=== PATIENT | female | born 1950 | race Hispanic/Latino ===

== ENCOUNTER 2021-11-22 07:44 | Inpatient (IN) | payer MEDICARE, OTHER ==
[2021-11-22] MEDS ORDERED: SODIUM CHLORIDE 0.9% 1000 ML 1,000 ML IV ONE (08:57)
--- NOTE | 2021-11-22 09:01 | Emergency Department Report ---
HPI - General Chief Complaint: Neuro Symptoms/Deficit Time Seen by Provider: 11/22/21 08:49 - HPI HPI: Room 25 The patient is a 71-year-old female present with a chief complaint of hand tremors. Patient was reportedly sent to the ED by her daughter who called EMS secondary to the patient exhibiting hand tremors. Reportedly in the past the patient has experienced this when her potassium was low. Patient appears confused initially states she does not know when asked why she was brought to the emergency department. Patient later complains of hand tremors. Patient denies history of heavy/frequent alcohol consumption ED Past Medical Hx - Past Medical History Hx GERD: Yes (1998) Hx Seizures: Yes (X1 OCCURANCE R/T ECTOPIC 1979) - Surgical History Additional Surgical History: Bilateral knee surgery - Family History Family history: no significant - Social History Smoking Status: Never Smoker Substance Use Type: None (Denies illicit drug use) - Medications Home Medications: Home Medications Medication Instructions Recorded Confirmed Last Taken Type Omeprazole Magnesium [Prilosec Otc] 20 mg PO QDAY 05/17/14 05/24/14 05/23/14 History Quetiapine Fumarate (Nf) [Seroquel 150 mg PO QDAY 05/17/14 05/24/14 05/23/14 History XR] Sertraline [Zoloft] 100 mg PO QDAY 05/17/14 05/24/14 05/23/14 History Dexlansoprazole [Dexilant] 60 mg PO QDAY 05/24/14 05/24/14 05/23/14 History LORazepam [Lorazepam] 1 mg PO BID 05/24/14 05/24/14 05/23/14 History ED Review of Systems ROS: Stated complaint: TREMMORS,SHAKES Other details as noted in HPI Constitutional: no symptoms reported Eyes: denies: eye pain ENT: denies: throat pain Respiratory: no symptoms reported Cardiovascular: denies: chest pain Endocrine: no symptoms reported Gastrointestinal: denies: abdominal pain Genitourinary: denies: dysuria Musculoskeletal: denies: back pain Neurological: other (Tremors) Physical Exam - Physical Exam Vital Signs: Vital Signs 11/22/21 07:50 Temperature 98.0 F Pulse Rate 120 H Respiratory 16 Rate Blood Pressure 124/74 [Left] O2 Sat by Pulse 97 Oximetry Physical Exam: GENERAL: The patient is well-developed well-nourished female lying on stretcher sleeping not appearing to be in acute distress. Patient easily awakened to verbal stimuli HEENT: Normocephalic. Atraumatic. Extraocular motions are intact. Patient has moist mucous membranes. NECK: Supple. Trachea midline CHEST/LUNGS: Clear to auscultation. There is no respiratory distress noted. HEART/CARDIOVASCULAR: Regular. There is no tachycardia. There is no gallop rub or murmur. ABDOMEN: Abdomen is soft, nontender. Patient has normal bowel sounds. There is no abdominal distention. SKIN: There is no rash. There is no edema. There is no diaphoresis. NEURO: The patient is awake, alert, and oriented. The patient is cooperative. The patient has no focal neurologic deficits. The patient has normal speech. GCS 15. Cranial nerves II through XII grossly intact. Trace tremors noted occasionally in hands MUSCULOSKELETAL: There is no evidence of acute injury. ED Course Vital Signs 11/22/21 07:50 Temperature 98.0 F Pulse Rate 120 H Respiratory 16 Rate Blood Pressure 124/74 [Left] O2 Sat by Pulse 97 Oximetry ED Medical Decision Making - Lab Data Result diagrams: 11/22/21 09:31 11/22/21 09:31 Laboratory Tests 11/22/21 11/22/21 11/22/21 09:31 09:31 09:31 WBC 9.2 RBC 4.66 Hgb 14.6 H Hct 42.9 MCV 92 MCH 31 MCHC 34 RDW 13.7 Plt Count 249 Lymph % (Auto) 10.6 L Howard % (Auto) 8.0 H Eos % (Auto) 0.0 Baso % (Auto) 0.2 Lymph # (Auto) 1.0 L Howard # (Auto) 0.7 Eos # (Auto) 0.0 Baso # (Auto) 0.0 Seg Neutrophils % 81.2 H Seg Neutrophils # 7.5 Sodium 142 Potassium 3.5 L Chloride 98.7 Carbon Dioxide 23 Anion Gap 24 BUN 41 H Creatinine 1.9 H Estimated GFR 26 BUN/Creatinine Ratio 22 Glucose 126 H Calcium 10.1 Magnesium 2.00 Total Bilirubin 0.40 AST 18 ALT 11 Alkaline Phosphatase 97 Total Creatine Kinase 117 CK-MB (CK-2) 3.8 CK-MB (CK-2) Rel Index 3.2 Troponin T < 0.010 Total Protein 8.8 H Albumin 4.8 Albumin/Globulin Ratio 1.2 TSH 1.060 Free T4 1.33 - EKG Data -: EKG Interpreted by Me Rate: tachycardia - EKG Data When compared to previous EKG there are: previous EKG unavailable Interpretation: other (Atrial fibrillation at 100 bpm) - Differential Diagnosis Resting tremor, hyperthyroidism, electrolyte abnormality Critical care attestation.: If time is entered above; I have spent that time in minutes in the direct care of this critically ill patient, excluding procedure time. ED Disposition Clinical Impression: Atrial fibrillation, Acute kidney injury Disposition: ADMITTED INPATIENT Is pt being admited?: Yes Does the pt Need Aspirin: No Condition: Fair Time of Disposition: 13:00 (Care transferred to hospitalist (Dr Lee))
[2021-11-22 10:21] LABS: Basophils % (Auto) 0.2 % (0.0-1.8); Creatine Kinase MB 3.8 ng/mL (0.0-4.0); Hematocrit 42.9 % (30.3-42.9); Hemoglobin 14.6 gm/dl (10.1-14.3); Lymphocytes % (Auto) 10.6 % (13.4-35.0); Mean Corpuscular HGB Conc 34 % (30-34); Mean Corpuscular Volume 92 fl (79-97); Monocytes # (Auto) 0.7 K/mm3 (0.0-0.8); Platelet Count 249 K/mm3 (140-440); Red Blood Count 4.66 M/mm3 (3.65-5.03); Red Cell Distribution Width 13.7 % (13.2-15.2)
[2021-11-22 10:23] LABS: Alanine Aminotransferase 11 units/L (7-56); Albumin 4.8 g/dL (3.9-5); BUN/Creatinine Ratio 22; Blood Urea Nitrogen 41 mg/dL (7-17); Calcium 10.1 mg/dL (8.4-10.2); Hemolysis Index 8
[2021-11-22 10:25] LABS: Free T4 (Free Thyroxine) 1.33 ng/dL (0.76-1.46)
--- NOTE | 2021-11-22 13:02 | History and Physical Report ---
History of Present Illness Chief complaint: I am shaking History of present illness: 71 YO Female with Obesity Hypoventilation Syndrome, GERD, Seizure Disorder, OA, Vascular Dementia, Cerebral Atherosclerosis presents to ED for evaluation. Patient is confused with diminished cognition and provides minimal history. Wesley quinteros reports "I keep checking". Additional history provided by EMS staff, ED staff, as well as the patient's daughter was made available by telephone for interview. As per daughter the patient has experienced increased weakness and confusion over the past 1 month with persistent and worsening symptoms over the same timeframe. The patient was found to have increased confusion today and subsequent loss of consciousness.. EMS was notified by the daughter for the aforementioned symptoms. Upon arrival by EMS the patient was found to be in distress and subsequent transported to [facility] for further care and evaluation of the aforementioned symptoms. The patient was seen and evaluated in the em ergency department. All lab and imaging studies reviewed. Patient was found to have new onset atrial fibrillation, TOSHIA with ATN, volume depletion, metabolic encephalopathy. Patient admitted to telemetry due to increased risk of worsening symptoms and for medical stabilization. Patient is confused and lethargic at the time my evaluation but has a positive gag reflex and is able to protect her airway without difficulty. No prior admission for review. All medication listed at time of admission has been reconciled. Advanced care planning conducted in ED. [id number] score: 2 Past History Past Medical History: arthritis, GERD, hypertension, seizures, other (See HPI) Past Surgical History: total knee replacement Social history: . denies: smoking, alcohol abuse, prescription drug abuse Family history: hypertension Medications and Allergies Allergies Allergy/AdvReac Type Severity Reaction Status Date / Time codeine AdvReac Itching Verified 11/22/21 07:52 Home Medications Medication Instructions Recorded Confirmed Last Taken Type Omeprazole Magnesium [Prilosec Otc] 20 mg PO QDAY 05/17/14 05/24/14 05/23/14 History Quetiapine Fumarate (Nf) [Seroquel 150 mg PO QDAY 05/17/14 05/24/14 05/23/14 History XR] Sertraline [Zoloft] 100 mg PO QDAY 05/17/14 05/24/14 05/23/14 History Dexlansoprazole [Dexilant] 60 mg PO QDAY 05/24/14 05/24/14 05/23/14 History LORazepam [Lorazepam] 1 mg PO BID 05/24/14 05/24/14 05/23/14 History Review of Systems ROS unobtainable: due to mental status Exam - Constitutional Vitals: Temp Pulse Resp BP Pulse Ox 98.0 F 72 16 152/84 99 11/22/21 07:50 11/22/21 12:40 11/22/21 12:40 11/22/21 12:40 11/22/21 12:40 General appearance: Present: mild distress, obese - EENT Eyes: Present: PERRL ENT: hearing intact, clear oral mucosa, hearing decreased - Neck Neck: Present: supple, normal ROM - Respiratory Respiratory effort: normal Respiratory: bilateral: diminished - Cardiovascular Rhythm: irregularly irregular - Extremities Extremities: no ischemia Peripheral Pulses: within normal limits - Abdominal General gastrointestinal: Present: soft, non-tender, non-distended, normal bowel sounds Female genitourinary: Present: normal - Integumentary Integumentary: Present: clear, dry - Musculoskeletal Musculoskeletal: generalized weakness - Psychiatric Psychiatric: no appropriate mood/affect, no intact judgment & insight, no memory intact - Neurologic Neurologic: CNII-XII intact, no focal deficits, moves all extremities, no gait normal HEART Score - HEART Score Troponin: Troponin T < 0.010 ng/mL (0.00-0.029) 11/22/21 09:31 Results - Labs CBC & Chem 7: 11/22/21 09:31 11/22/21 09:31 Labs: Abnormal lab results 11/22/21 11/22/21 Range/Units 09:31 09:31 Hgb 14.6 H (10.1-14.3) gm/dl Lymph % (Auto) 10.6 L (13.4-35.0) % [place] % (Auto) 8.0 H (0.0-7.3) % Lymph # (Auto) 1.0 L (1.2-5.4) K/mm3 Seg Neutrophils % 81.2 H (40.0-70.0) % Potassium 3.5 L (3.6-5.0) mmol/L BUN 41 H (7-17) mg/dL Creatinine 1.9 H (0.6-1.2) mg/dL Glucose 126 H (65-100) mg/dL Total Protein 8.8 H (6.3-8.2) g/dL Assessment and Plan - Patient Problems (1) New onset atrial fibrillation Current Visit: Yes Status: Acute Plan to address problem: Cardiology team consulted in ED. Rate currently controlled, EKG finding consistent with new onset atrial fibrillation. Therapeutic anticoagulation as per cardiology team. (2) Syncope Current Visit: Yes Status: Acute Qualifiers: Encounter type: initial encounter Plan to address problem: CT head, neuro check, seizure precautions, fall precautions. (3) Acute kidney injury (TOSHIA) with acute tubular necrosis (ATN) Current Visit: Yes Status: Acute Plan to address problem: IV fluid resuscitation therapy, BMP, repeat BMP in a.m., monitor fluid balance. (4) Vascular dementia Current Visit: Yes Status: Acute Qualifiers: Dementia behavioral disturbance: without behavioral disturbance Qualified Code(s): F01.50 - Vascular dementia without behavioral disturbance Plan to address problem: Verbal prompting, verbal redirection, benzodiazepine therapy as clinically indicated. (5) Cerebral atherosclerosis Current Visit: Yes Status: Acute Plan to address problem: Risk factor reduction, antiplatelet therapy, supportive care. (6) Metabolic encephalopathy Current Visit: Yes Status: Acute Plan to address problem: Supportive care, neuro check, seizure precaution, aspiration caution, fall precautions. (7) Obesity hypoventilation syndrome Current Visit: Yes Status: Acute Plan to address problem: Balanced diet, increase physical activity discharge, outpatient pulmonary follow-up for sleep study. (8) DVT prophylaxis Current Visit: Yes Status: Acute Plan to address problem: SCD to bilateral lower extremities while in bed (9) Advance care planning Current Visit: Yes Status: Acute Plan to address problem: Disease education data, care plan discussed, diagnoses discussed, prognosis discussed, patient is full code. +30 minutes. (10) Preventative health care Current Visit: Yes Status: Acute Plan to address problem: Patient family counseled regarding home safety, outpatient follow-up with primary care physician for all age and risk factor appropriate screening test, +30 minutes.
[2021-11-22] MEDS ORDERED: ALBUTEROL 2.5 MG/3 ML NEBU IH PRN (13:04)
[2021-11-22] MEDS ORDERED: ONDANSETRON 4 MG/2 ML INJ IV PRN (13:04)
[2021-11-22] MEDS ORDERED: HYDROmorphone 0.5 MG/0.5 ML INJ IV PRN (13:04)
--- NOTE | 2021-11-22 13:37 | Electrocardiograph Report ---
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
[2021-11-22 14:50] LABS: Free T4 (Free Thyroxine) 1.24 ng/dL (0.76-1.46)
--- NOTE | 2021-11-22 16:20 | Cat Scan Report ---
CT head/brain wo con INDICATION / CLINICAL INFORMATION: 71 years Female; syncope. TECHNIQUE: Routine CT head without contrast. All CT scans at this location are performed using CT dos e reduction for ALARA by means of automated exposure control. COMPARISON: None. FINDINGS: BRAIN / INTRACRANIAL CONTENTS: No acute hemorrhage, mass effect, midline shift, hydrocephalus, or acu te, large territorial infarct. No signs of significant atrophy or chronic infarct. No significant whi te matter abnormality seen. CRANIOCERVICAL JUNCTION: No significant abnormality. ORBITS: No significant abnormality of visualized orbits. SINUSES / MASTOIDS: Visualized paranasal sinuses and mastoid air cells are essentially clear. ADDITIONAL FINDINGS: None. IMPRESSION: 1. No focal mass, hemorrhage, hydrocephalus, or acute, large territorial infarct. Signer Name: Ricardo Ramey MD, III Signed: 11/22/2021 4:15 PM Workstation Name: [id number]
[2021-11-22] MEDS: ACETAMINOPHEN 325 MG TAB PO PRN (18:53)
[2021-11-23 05:12] LABS: Calcium 9.2 mg/dL (8.4-10.2)
[2021-11-23] MEDS ORDERED: DEXLANSOPRAZOLE 60 MG PO SCH (10:00)
[2021-11-23] MEDS ORDERED: QUETIAPINE FUMARATE 150 MG PO SCH (10:00)
--- NOTE | 2021-11-23 10:55 | Consultation ---
History of Present Illness Consult date: 11/23/21 Consult reason: atrial fibrillation History of present illness: 71-year-old female is admitted with weakness and confusion. Currently, her ment al status is back to baseline and she is alert and oriented. She reports that she is followed by Dr. Batista at [facility] and has been anticoagulated with Eliquis as outpatient for history of AF. No prior history of DVT/PE or strokes per patient. She currently is without any acute cardiac complaints and denies any chest pain, shortness of breath, or palpitations. Work-up notable for EKG with rate controlled AF, troponin x1 negative, normal thyroid studies, and TOSHIA with Cr 1.9 on presentation (now resolved after IV fluids). CT of head negative. Past History Past Medical History: arthritis, GERD, hypertension, seizures, other (See HPI) Past Surgical History: total knee replacement Social history: . denies: smoking, alcohol abuse, prescription drug abuse Family history: hypertension Medications and Allergies Allergies Allergy/AdvReac Type Severity Reaction Status Date / Time codeine AdvReac Itching Verified 11/22/21 07:52 Home Medications Medication Instructions Recorded Confirmed Last Taken Type Omeprazole Magnesium [Prilosec Otc] 20 mg PO QDAY 05/17/14 11/23/21 05/23/14 History Quetiapine Fumarate (Nf) [Seroquel 150 mg PO QDAY 05/17/14 11/23/21 05/23/14 History XR] Sertraline [Zoloft] 100 mg PO QDAY 05/17/14 11/23/21 05/23/14 History Dexlansoprazole [Dexilant] 60 mg PO QDAY 05/24/14 11/23/21 05/23/14 History LORazepam [Lorazepam] 1 mg PO BID 05/24/14 11/23/21 05/23/14 History Active Meds: Active Medications Acetaminophen (Acetaminophen 325 Mg Tab) 650 mg PO Q4H PRN PRN Reason: Pain MILD(1-3)/Fever >100.5/COMBS Last Admin: 11/22/21 18:53 Dose: 650 mg Albuterol (Albuterol 2.5 Mg/3 Ml Nebu) 2.5 mg IH Q4H PRN PRN Reason: Shortness Of Breath Apixaban (Apixaban 5 Mg Tab) 5 mg PO Q12HR [facility]; Protocol Hydromorphone HCl (Hydromorphone 0.5 Mg/0.5 Ml Inj) 0.5 mg IV Q13H PRN PRN Reason: Pain , Severe (7-10) Lorazepam (Lorazepam 1 Mg Tab) 1 mg PO BID [facility] Metoprolol Tartrate (Metoprolol Tartrate 25 Mg Tab) 12.5 mg PO BID [facility] Miscellaneous Medication (Quetiapine Fumarate (Nf)) 150 mg PO QDAY [facility] Miscellaneous Medication (Dexlansoprazole [Dexilant]) 60 mg PO QDAY [facility] Ondansetron HCl (Ondansetron 4 Mg/2 Ml Inj) 4 mg IV Q8H PRN PRN Reason: Nausea And Vomiting Oxycodone/Acetaminophen (Oxycodone /Acetaminophen 5-325mg Tab) 1 tab PO Q16H PRN PRN Reason: Pain, Moderate (4-6) Sertraline HCl (Sertraline 100 Mg Tab) 100 mg PO QDAY [facility] Sodium Chloride (Sodium Chloride 0.9% 10 Ml Flush Syringe) 10 ml IV BID [facility] Last Admin: 11/22/21 21:39 Dose: 10 ml Sodium Chloride (Sodium Chloride 0.9% 10 Ml Flush Syringe) 10 ml IV PRN PRN PRN Reason: LINE FLUSH Physical Examination Vital Signs Temp Pulse Resp BP Pulse Ox 98.0 F 120 H 16 124/74 97 11/22/21 07:50 11/22/21 07:50 11/22/21 07:50 11/22/21 07:50 11/22/21 07:50 Narrative exam: Gen-NAD, comfortable HEENT-normocephalic, atraumatic CV-irregularly irregular rhythm, regular rate, no murmurs Lungs-CTAB, no increased WOB Abd-soft, nt,nd Ext-no edema, warm to touch Neuro-no focal deficits, alert and oriented Psych-normal affect, no agitation Results 11/22/21 09:31 11/23/21 04:38 Comprehensive Metabolic Panel 11/23/21 Range/Units 04:38 Sodium 143 (137-145) mmol/L Potassium 3.3 L (3.6-5.0) mmol/L Chloride 103.7 (98-107) mmol/L Carbon Dioxide 25 (22-30) mmol/L BUN 37 H (7-17) mg/dL Creatinine 1.2 (0.6-1.2) mg/dL Glucose 111 H (65-100) mg/dL Calcium 9.2 (8.4-10.2) mg/dL 11/22/2021 EKGatrial fibrillation, heart rate 100, left axis, incomplete left bundle branch block 11/2021 Echonormal LVEF, normal biatrial size Assessment and Plan #Atrial fibrillation, unclear chronicity #Confusionresolved #Acute kidney injuryresolved with IV fluids #Reported history of vascular dementiapatient denies any prior strokes Patient reports history of atrial fibrillation, but it is unclear whether this is paroxysmal or persistent at this point. Will start metoprolol 12.5 mg p.o. twice daily. [id number] is at least 2 (3 if vascular dementia). Recommend continuing Eliquis 5 mg p.o. twice daily.
--- NOTE | 2021-11-23 11:05 | Progress Note ---
Assessment and Plan (1) New onset atrial fibrillation Current Visit: Yes Status: Acute Plan to address problem: Cardiology team consulted in ED. Rate currently controlled, EKG finding consistent with new onset atrial fibrillation. Therapeutic anticoagulation as p er cardiology team. (2) Syncope Current Visit: Yes Status: Acute Qualifiers: Encounter type: initial encounter Plan to address problem: CT head, neuro check, seizure precautions, fall precautions. (3) Acute kidney injury (TOSHIA) with acute tubular necrosis (ATN) Current Visit: Yes Status: Acute Plan to address problem: IV fluid resuscitation therapy, BMP, repeat BMP in a.m., monitor fluid balance. (4) Vascular dementia Current Visit: Yes Status: Acute Qualifiers: Dementia behavioral disturbance: without behavioral disturbance Qualified Code(s): F01.50 - Vascular dementia without behavioral disturbance Plan to address problem: Verbal prompting, verbal redirection, benzodiazepine therapy as clinically indicated. (5) Cerebral atherosclerosis Current Visit: Yes Status: Acute Plan to address problem: Risk factor reduction, antiplatelet therapy, supportive care. (6) Metabolic encephalopathy Current Visit: Yes Status: Acute Plan to address problem: Supportive care, neuro check, seizure precaution, aspiration caution, fall pr ecautions. (7) Obesity hypoventilation syndrome Current Visit: Yes Status: Acute Plan to address problem: Balanced diet, increase physical activity discharge, outpatient pulmonary follow-up for sleep study. (8) DVT prophylaxis Current Visit: Yes Status: Acute Plan to address problem: SCD to bilateral lower extremities while in bed (9) Advance care planning Current Visit: Yes Status: Acute Plan to address problem: Disease education data, care plan discussed, diagnoses discussed, prognosis discussed, patient is full code. +30 minutes. (10) Preventative health care Current Visit: Yes Status: Acute Plan to address problem: Patient family counseled regarding home safety, outpatient follow-up with primary care physician for all age and risk factor appropriate screening test, +30 minutes. -- Initiated on Eliquis, mental status significantly improved, discussed with daughter at the bedside. Patient placed on rate control medicine for atrial fibrillation. We will monitor H&H and will follow 2D echo, cardiology following. Subjective Date of service: 11/23/21 Interval history: Patient seen and examined. Medical records and medication list reviewed. No acute event overnight noted by the RN. Patient denies any chest pain or difficulty breathing. Patient is tolerating diet. Discussed plan of care at bedside with patient. Objective - Exam Narrative Exam: GENERAL: well-developed and obese female lying on bed appeared to be in no discomfort. HEENT: Normocephalic. Atraumatic. No conjunctival congestion or icterus. Patient has moist mucous membranes. NECK: Supple. Trachea midline. CHEST/LUNGS: Clear to auscultated bilaterally, breathing nonlabored. No wheezes crackles or rhonchi. HEART/CARDIOVASCULAR: irRegular in rate and rhythm. S1 and S2 positive. ABDOMEN: Abdomen is soft, nontender. Patient has normal bowel sounds. SKIN: There is no rash. Warm and dry. NEURO: No focal motor deficit. Follows command. MUSCULOSKELETAL: No joint effusion or tenderness. EXTRIMITY: No edema, no cyanosis or clubbing. PSYCH: Cooperative. - Constitutional Vitals: Vital Signs - 12hr 11/22/21 11/23/21 23:37 03:19 Temperature 99.4 F 99.1 F Pulse Rate 97 H 91 H Respiratory 18 18 Rate Blood Pressure 117/66 126/70 O2 Sat by Pulse 93 97 Oximetry - Labs CBC & Chem 7: 11/23/21 11:52 11/23/21 11:52 Labs: Abnormal lab results 11/23/21 Range/Units 04:38 Potassium 3.3 L (3.6-5.0) mmol/L BUN 37 H (7-17) mg/dL Glucose 111 H (65-100) mg/dL HEART Score - HEART Score Troponin: Troponin T < 0.010 ng/mL (0.00-0.029) 11/22/21 09:31
[2021-11-23] MEDS: METOPROLOL TARTRATE 25 MG TAB PO SCH ×2 (11:24→22:29)
[2021-11-23] MEDS: LORazepam 1 MG TAB PO SCH ×2 (11:24→21:52)
[2021-11-23] MEDS: SERTRALINE 100 MG TAB PO SCH (11:24)
[2021-11-23] MEDS ORDERED: oxyCODONE /ACETAMINOPHEN 5-325MG TAB PO PRN (11:30)
[2021-11-23 12:11] LABS: Hematocrit 38.5 % (30.3-42.9); Hemoglobin 13.3 gm/dl (10.1-14.3); Mean Corpuscular HGB Conc 35 % (30-34); Mean Corpuscular Volume 92 fl (79-97); Platelet Count 197 K/mm3 (140-440); Red Blood Count 4.18 M/mm3 (3.65-5.03); Red Cell Distribution Width 13.8 % (13.2-15.2)
[2021-11-23 12:22] LABS: INR 0.95 (0.87-1.13)
[2021-11-23 12:23] LABS: Partial Thromboplastin Time 29.6 Sec. (24.2-36.6)
[2021-11-23] MEDS: PANTOPRAZOLE 40 MG TAB PO SCH (14:05)
[2021-11-23] MEDS: APIXABAN 5 MG TAB PO SCH ×2 (14:05→21:49)
[2021-11-24] MEDS: ACETAMINOPHEN 325 MG TAB PO PRN (05:12)
--- NOTE | 2021-11-24 09:47 | Progress Note ---
Assessment and Plan #Atrial fibrillation, unclear chronicity #Confusionresolved #Acute kidney injuryresolved with IV fluids #Reported history of vascular dementiapatient denies any prior strokes Telemetry shows rate controlled atrial fibrillation. Continue metoprolol 12.5 mg p.o. twice daily. [id number] is at least 2 (3 if vascular dementia). Continue Eliquis 5 mg p.o. twice daily. Subjective Date of service: 11/24/21 Interval history: No events. Denies chest pain or shortness of breath. Telemetryrate controlled atrial fibrillation Objective Vital Signs Temp Pulse Pulse Resp BP Pulse Ox 11/24/21 07:55 94 11/24/21 07:48 75 153/83 94 11/24/21 04:49 97.9 F 83 20 160/93 96 11/24/21 00:41 98.1 F 95 H 20 112/71 93 11/24/21 00:00 101 H 11/23/21 22:29 88 112/71 11/23/21 22:00 97 11/23/21 19:22 98.8 F 88 20 112/69 97 11/23/21 15:30 83 16 136/85 90 11/23/21 12:00 80 80 97 11/23/21 11:30 98.3 F 73 16 138/80 98 - Physical Examination Narrative exam: Gen-NAD, comfortable HEENT-normocephalic, atraumatic CV-irregularly irregular rhythm, regular rate, no murmurs Lungs-CTAB, no increased WOB Abd-soft, nt,nd Ext-trace edema, warm to touch Neuro-no focal deficits, alert and oriented Psych-normal affect, no agitation - Labs and Meds Coagulation 11/23/21 Range/Units 11:52 PT 13.7 (12.2-14.9) Sec. INR 0.95 (0.87-1.13) APTT 29.6 (24.2-36.6) Sec. CBC 11/23/21 Range/Units 11:52 WBC 5.9 (4.5-11.0) K/mm3 RBC 4.18 (3.65-5.03) M/mm3 Hgb 13.3 (10.1-14.3) gm/dl Hct 38.5 (30.3-42.9) % Plt Count 197 (140-440) K/mm3 Comprehensive Metabolic Panel 11/23/21 Range/Units 11:52 Creatinine 1.0 (0.6-1.2) mg/dL
[2021-11-24] MEDS: SERTRALINE 100 MG TAB PO SCH (10:07)
[2021-11-24] MEDS: METOPROLOL TARTRATE 25 MG TAB PO SCH ×3 (10:08→22:40)
[2021-11-24] MEDS: APIXABAN 5 MG TAB PO SCH ×2 (10:08→22:39)
[2021-11-24] MEDS: LORazepam 1 MG TAB PO SCH ×2 (10:08→22:39)
[2021-11-24] MEDS: PANTOPRAZOLE 40 MG TAB PO SCH (10:08)
--- NOTE | 2021-11-24 14:07 | Progress Note ---
Assessment and Plan --New onset seizure -According to the daughter patient was having jerking movements before passing out and does not have any prior h/o seizure -cont on Keppra and will follow neurology recommendation -ordered MRI brain (1) New onset atrial fibrillation Current Visit: Yes Status: Acute Plan to address problem: Cardiology team consulted in ED. Rate currently controlled, EKG finding consistent with new onset atrial fibrillation. Therapeutic anticoagulation as per cardiology team. (2) Syncope Current Visit: Yes Status: Acute Qualifiers: Encounter type: initial encounter Plan to address problem: CT head, neuro check, seizure precautions, fall precautions. (3) Acute kidney injury (TOSHIA) with acute tubular necrosis (ATN) Current Visit: Yes Status: Acute Plan to address problem: IV fluid resuscitation therapy, BMP, repeat BMP in a.m., monitor fluid balance. (4) Vascular dementia Current Visit: Yes Status: Acute Qualifiers: Dementia behavioral disturbance: without behavioral disturbance Qualified Code(s): F01.50 - Vascular dementia without behavioral disturbance Plan to address problem: Verbal prompting, verbal redirection, benzodiazepine therapy as clinically indicated. (5) Cerebral atherosclerosis Current Visit: Yes Status: Acute Plan to address problem: Risk factor reduction, antiplatelet therapy, supportive care. (6) Metabolic encephalopathy Current Visit: Yes Status: Acute Plan to address problem: Supportive care, neuro check, seizure precaution, aspiration caution, fall precautions. (7) Obesity hypoventilation syndrome Current Visit: Yes Status: Acute Plan to address problem: Balanced diet, increase physical activity discharge, outpatient pulmonary foll ow-up for sleep study. (8) DVT prophylaxis Current Visit: Yes Status: Acute Plan to address problem: SCD to bilateral lower extremities while in bed (9) Advance care planning Current Visit: Yes Status: Acute Plan to address problem: Disease education data, care plan discussed, diagnoses discussed, prognosis discussed, patient is full code. +30 minutes. (10) Preventative health care Current Visit: Yes Status: Acute Plan to address problem: Patient family counseled regarding home safety, outpatient follow-up with primary care physician for all age and risk factor appropriate screening test, +30 minutes. -- Initiated on Eliquis, mental status significantly improved, discussed with daughter at the bedside. Renal function normal, Continue Keppra 500 mg twice daily. wait for MRI brain to be done and neuro eval, PT consulted and pending recommendations Subjective Date of service: 11/24/21 Interval history: Patient seen and examined. Medical records and medication list reviewed. No acute event overnight noted by the RN. Patient denies any chest pain or difficulty breathing. Patient is tolerating diet. Discussed plan of care at bedside with patient. Objective - Exam Narrative Exam: GENERAL: well-developed and obese female lying on bed appeared to be in no discomfort. HEENT: Normocephalic. Atraumatic. No conjunctival congestion or icterus. Patient has moist mucous membranes. NECK: Supple. Trachea midline. CHEST/LUNGS: Clear to auscultated bilaterally, breathing nonlabored. No wheezes crackles or rhonchi. HEART/CARDIOVASCULAR: irRegular in rate and rhythm. S1 and S2 positive. ABDOMEN: Abdomen is soft, nontender. Patient has normal bowel sounds. SKIN: There is no rash. Warm and dry. NEURO: No focal motor deficit. Follows command. MUSCULOSKELETAL: No joint effusion or tenderness. EXTRIMITY: No edema, no cyanosis or clubbing. PSYCH: Cooperative. - Constitutional Vitals: Vital Signs - 12hr 11/24/21 11/24/21 11/24/21 04:49 07:48 07:55 Temperature 97.9 F Pulse Rate 83 75 Respiratory 20 Rate Blood Pressure 160/93 153/83 O2 Sat by Pulse 96 94 94 Oximetry 11/24/21 10:00 Temperature Pulse Rate Respiratory Rate Blood Pressure O2 Sat by Pulse 98 Oximetry - Labs CBC & Chem 7: 11/25/21 05:48 11/23/21 11:52 HEART Score - HEART Score Troponin: Troponin T < 0.010 ng/mL (0.00-0.029) 11/22/21 09:31
[2021-11-24] MEDS: levETIRAcetam 500 MG TAB PO SCH ×2 (18:33→22:40)
[2021-11-25 06:11] LABS: Hematocrit 38.7 % (30.3-42.9); Hemoglobin 13.1 gm/dl (10.1-14.3); Mean Corpuscular HGB Conc 34 % (30-34); Mean Corpuscular Volume 93 fl (79-97); Platelet Count 185 K/mm3 (140-440); Red Blood Count 4.16 M/mm3 (3.65-5.03); Red Cell Distribution Width 13.5 % (13.2-15.2)
[2021-11-25] MEDS ORDERED: QUEtiapine 25 MG TAB PO SCH (10:00)
--- NOTE | 2021-11-25 10:40 | Progress Note ---
Assessment and Plan - Patient Problems (1) Atrial fibrillation Current Visit: Yes Status: Acute Plan to address problem: Patient's atrial fibrillation appears chronic, with stable rate control and on stable oral anticoagulant therapy. Continue current management. Subjective Date of service: 11/25/21 Principal diagnosis: Altered mental status Interval history: Patient is comfortable, no acute distress, no cardiac complaints. On sales enablement specialist she remains in atrial fibrillation with a well-controlled ventricular rate. Objective Vital Signs Temp Pulse Resp BP Pulse Ox 11/25/21 10:00 98 11/25/21 08:31 97.5 F L 81 140/76 95 11/25/21 06:33 98.0 F 76 16 136/74 94 11/25/21 00:43 98.4 F 81 16 150/76 95 11/24/21 23:05 98 11/24/21 20:59 98.1 F 87 24 149/77 92 11/24/21 20:00 98 11/24/21 15:12 98.0 F 82 20 155/94 96 11/24/21 12:00 75 - Physical Examination General: No Apparent Distress HEENT: Positive: PERRL Neck: Positive: neck supple Cardiac: Positive: irregularly irregular Lungs: Positive: clear to auscultation Neuro: Positive: Grossly Intact Abdomen: Positive: Soft Skin: Positive: Clear Extremities: Absent: edema - Labs and Meds CBC 11/25/21 Range/Units 05:48 WBC 5.7 (4.5-11.0) K/mm3 RBC 4.16 (3.65-5.03) M/mm3 Hgb 13.1 (10.1-14.3) gm/dl Hct 38.7 (30.3-42.9) % Plt Count 185 (140-440) K/mm3
[2021-11-25] MEDS: LORazepam 1 MG TAB PO SCH (11:39)
[2021-11-25] MEDS: levETIRAcetam 500 MG TAB PO SCH (11:40)
[2021-11-25] MEDS: APIXABAN 5 MG TAB PO SCH (11:40)
[2021-11-25] MEDS: SERTRALINE 100 MG TAB PO SCH (11:40)
[2021-11-25] MEDS: METOPROLOL TARTRATE 25 MG TAB PO SCH (11:40)
[2021-11-25] MEDS: PANTOPRAZOLE 40 MG TAB PO SCH (11:42)
--- NOTE | 2021-11-25 11:45 | Magnetic Resonance Report ---
MR brain wo con INDICATION / CLINICAL INFORMATION: Possible seizure. TECHNIQUE: Multiplanar, multisequence MR images of the brain were obtained. COMPARISON: November 22, 2021 FINDINGS: INTRACRANIAL: No restricted diffusion. No hemorrhage. Ventricular caliber is normal. No extra-axial c ollection. No mass. No herniation. Major intracranial vascular flow voids are preserved. Small quant ity of scattered T2 signal white matter hyperintensities, most consistent with mild sequela of chroni c microvascular disease which is a common finding in this age. ORBITS: No significant abnormality of visualized orbits. SINUSES / MASTOIDS: No significant abnormality of visualized sinuses and mastoid air cells. ADDITIONAL FINDINGS: None. IMPRESSION: 1. No significant intracranial abnormality. Signer Name: Phi Matos MD Signed: 11/25/2021 11:41 AM Workstation Name: [id number]
[2021-11-25 16:08] VITALS: BP 141/76
--- NOTE | 2021-11-25 16:09 | Discharge Summary ---
Providers - Providers Date of Admission: 11/22/21 13:04 Date of discharge: 11/25/21 Attending physician: JENNIFER CAZARES 11/22/21 13:34 Consult to Physician [CONS] Routine Comment: Consulting Provider: SALLY BURNS Physician Instructions: Reason For Exam: new onset a fib 11/24/21 14:00 Physical Therapy Evaluation and Treat [CONS] Routine Comment: Reason For Exam: Debility 11/24/21 14:05 Consult to Physician [CONS] Routine Comment: Consulting Provider: MIGUEL ANGEL TRAMMELL Physician Instructions: Reason For Exam: Breakthrough seizure Primary care physician: MATTRESS PACKER Hospitalization Condition: Fair Hospital course: 71-year-old female with history of hypertension, atrial fibrillation anticoagulated with Eliquis is admitted to the hospital with weakness and confusion. Patient noted to be in atrial fibrillation on telemetry. CT head was unremarkable. Patient and daughter at bedside described that patient was having some jerking movement but she does not have any history of seizure. Patient noted to have TOSHIA and placed on IV fluid, her renal function then become normal. Currently, her mental status is back to baseline and she is alert and oriented. She reports that she is followed by Dr. Batista at [facility]. Work-up notable for EKG with rate controlled AF, troponin x1 negative, normal thyroid studies, and TOSHIA with Cr 1.9 on presentation (now resolved after IV fluids). CT of head negative. Initially patient was suspected for possible seizure and started on Keppra. Neurology was consulted and evaluated the patient. Based on history and clinical finding it was concluded that patient might have convulsive syncope. Keppra was discontinued. Patient was then discharged home in stable condition with outpatient follow-up with neurology and outpatient EEG. Final Discharge Diagnosis (Prints w/discharge instructions): -- Acute convulsive syncope. -- Atrial fibrillation anticoagulated with Eliquis. -- TOSHIA likely ATN versus vasomotor nephropathy. -- Metabolic encephalopathy likely due to TOSHIA and dehydration. -- Morbid obesity. -- Suspected vascular dementia, need further outpatient work-up Time spent for discharge: 34 minutes Core Measure Documentation - Palliative Care Palliative Care/ Comfort Measures: Not Applicable - Core Measures Any of the following diagnoses?: none Exam - Physical Exam Narrative exam: GENERAL: well-developed and obese female lying on bed appeared to be in no discomfort. HEENT: Normocephalic. Atraumatic. No conjunctival congestion or icterus. Patient has moist mucous membranes. NECK: Supple. Trachea midline. CHEST/LUNGS: Clear to auscultated bilaterally, breathing nonlabored. No wheezes crackles or rhonchi. HEART/CARDIOVASCULAR: irRegular in rate and rhythm. S1 and S2 positive. ABDOMEN: Abdomen is soft, nontender. Patient has normal bowel sounds. SKIN: There is no rash. Warm and dry. NEURO: No focal motor deficit. Follows command. MUSCULOSKELETAL: No joint effusion or tenderness. EXTRIMITY: No edema, no cyanosis or clubbing. PSYCH: Cooperative. - Constitutional Vitals: Temp Pulse Resp BP Pulse Ox 97.6 F 80 16 141/76 92 11/25/21 16:07 11/25/21 16:07 11/25/21 06:33 11/25/21 16:07 11/25/21 16:07 Plan Activity: advance as tolerated Weight Bearing Status: Weight Bear as Tolerated Diet: low fat, low salt Additional Instructions: Follow-up with neurology as outpatient for possible EEG Follow up with: PRIMARY MD RUDOLPH [Primary Care Provider] - 3-5 Days KVNG HERCULES MD [Staff Physician] - 7 Days Prescriptions: Apixaban [Eliquis] 5 mg PO Q12HR #60 tablet Metoprolol [Lopressor TAB] 25 mg PO BID #60 tablet
--- NOTE | 2021-11-26 00:08 | Consultation ---
History of Present Illness Consult date: 11/25/21 Reason for Consult: Seizure Chief complaint: I was confused. History of present illness: 71 yo female with htn, "seizure", gerd, arthritis, bilateral knee replacement, who presents with an episode where she was able to converse with her granddaughter (currently at bedside) while she was shaking at her bilateral extremities and during this time she was able to recognize Berna and converse with her despite the bilateral shaking. Similar episode in the past is referred to as "seizure" in the setting of hypokalemia, per Berna. Currently, the patient feels much better and at her baseline. Upon ED arrival, noted with acute kidney injury (pre-renal) w/ borderline hypokalemia. Past History Past Medical History: arthritis, GERD, hypertension, seizures, other (See HPI) Past Surgical History: total knee replacement Social history: . denies: smoking, alcohol abuse, prescription drug abuse Family history: hypertension Medications and Allergies Allergies Allergy/AdvReac Type Severity Reaction Status Date / Time codeine AdvReac Itching Verified 11/22/21 07:52 Home Medications Medication Instructions Recorded Confirmed Last Taken Type Omeprazole Magnesium [PriLOSEC Otc] 20 mg PO QDAY 05/17/14 11/23/21 05/23/14 History Quetiapine Fumarate (Nf) [SEROquel 150 mg PO QDAY 05/17/14 11/23/21 05/23/14 History XR] Sertraline [Zoloft] 100 mg PO QDAY 05/17/14 11/23/21 05/23/14 History Dexlansoprazole [Dexilant] 60 mg PO QDAY 05/24/14 11/23/21 05/23/14 History LORazepam 1 mg PO BID 05/24/14 11/23/21 05/23/14 History Apixaban [Eliquis] 5 mg PO Q12HR #60 tablet 11/25/21 Unknown Rx Metoprolol [Lopressor TAB] 25 mg PO BID #60 tablet 11/25/21 Unknown Rx Review of Systems All systems: negative (as per hpi;) Physical Examination - Vital Signs Vital Signs: Vital Signs Temp Pulse Resp BP Pulse Ox 98.0 F 120 H 16 124/74 97 11/22/21 07:50 11/22/21 07:50 11/22/21 07:50 11/22/21 07:50 11/22/21 07:50 - Physical Exam Narrative exam: Gen: nad, well-nourished; Head: normocephalic; Eyes: no gaze deviation; no ptosis; ENT: normal vocalization; CVS: warm and well-perfused; Pulm: no respiratory distress; GI: appears non-distended; Ext: no cyanosis appreciated at distal extremities; Skin: no acute rash at distal extremities; Heme: no pathologic ecchymosis appreciated at distal extremities; Neuro: alert, oriented to name, age, month, year, surroundings, no dysarthria, no aphasia, CN 2 - PERRL, visual [place] grossly intact, CN 3, 4, 6 - EOMI, CN 5 - facial sensation symmetric to light touch, CN 7 - facial movement symmetric, CN 8 - hearing grossly intact, CN 9, 10 - uvula midline, CN 11 symmetric shoulder movement, CN 12 - tongue midline; Motor - at least 4/5 at all exts; Sensory - light touch symmetric, Cerebellar - fnf /hts intact, Gait - deferred secondary to fall risk; Results - Laboratory Findings CBC and BMP: 11/25/21 05:48 11/23/21 11:52 Abnormal Lab Findings: Abnormal Labs 11/22/21 11/22/21 11/23/21 09:31 09:31 04:38 Hgb 14.6 H MCHC Lymph % (Auto) 10.6 L Millard % (Auto) 8.0 H Lymph # (Auto) 1.0 L Seg Neutrophils % 81.2 H Potassium 3.5 L 3.3 L BUN 41 H 37 H Creatinine 1.9 H Glucose 126 H 111 H Total Protein 8.8 H 11/23/21 11:52 Hgb MCHC 35 H Lymph % (Auto) Millard % (Auto) Lymph # (Auto) Seg Neutrophils % Potassium BUN Creatinine Glucose Total Protein Assessment and Plan 71 yo female with htn, "seizure", gerd, arthritis, bilateral knee replacement, who presents with an episode where she was able to converse with her granddaughter (currently at bedside) while she was shaking at her bilateral extremities and during this time she was able to recognize Berna and converse with her despite the bilateral shaking. Similar episode in the past is referred to as "seizure" in the setting of hypokalemia, per Berna. 1. Convulsive Syncope - concern is raised based on clinical history and pt's ability to carry on a conversation while bilateral "shaking" is noted. 2. Acute Kidney Injury - in the setting of possible dehydration; per primary team. 3. Hypokalemia - common theme between last event and this event; ?cardiac dysrhythmia; management per primary team. 4. Hypertension - aim for normotension; outpatient carotid us. 5. No further acute neurologic workup indicated at present. Neurology will signoff. Gavin Ramirez MD Neurology [id number]
== END 2021-11-25 18:15 | disposition home or self-care (01) | DRG 682 ==
LOC: ED 07:44 → 4A 13:04
PROVIDERS: ADMIT Internal Medicine; ATTEND Internal Medicine
DX: N17.0 Acute kidney failure with tubular necrosis (principal); G93.41 Metabolic encephalopathy; Z68.41 Body mass index [BMI] 40.0-44.9, adult; E66.2 Morbid (severe) obesity with alveolar hypoventilation; I48.91 Unspecified atrial fibrillation; E86.0 Dehydration; F01.50 Vascular dementia, unspecified severity, without behavioral disturbance, psychotic disturbance, mood disturbance, and anxiety; E86.9 Volume depletion, unspecified; K21.9 Gastro-esophageal reflux disease without esophagitis; M19.90 Unspecified osteoarthritis, unspecified site; G40.909 Epilepsy, unspecified, not intractable, without status epilepticus; Z79.899 Other long term (current) drug therapy; Z82.49 Family history of ischemic heart disease and other diseases of the circulatory system
CPT/HCPCS: 36415; 70450; 70551; 80048; 80053; 82550; 82553; 82565; 83735; 84439; 84443; 84484; 85025; 85027; 85610; 85730; 93005; 93306; 94640; G0378; C8929

== ENCOUNTER 2022-01-26 23:51 | Emergency (ER) | payer MEDICARE ==
[2022-01-27] MEDS ORDERED: SODIUM CHLORIDE 0.9% 1000 ML 1,000 ML IV ONE (02:00)
--- NOTE | 2022-01-27 02:06 | Emergency Department Report ---
ED Altered Mental Status HPI - General Chief Complaint: Pain General Stated Complaint: WEAKNESS Time Seen by Provider: 01/27/22 01:36 Source: patient Mode of arrival: Stretcher Limitations: No Limitations - History of Present Illness Initial Comments: 71-year-old female with a history of GERD, hypertension, bipolar disorder, and renal disease, and possibly 1 seizure many years ago presents to the emergency department with confusion noticed by her family, guillermina. Patient is alert and oriented by 3, and states that she feels slightly confused. Patient's says that she is having diffuse myalgias and tongue pain, and did have urinary incontinence. Her daughter reports that when she was found, gulilermina she was more confused than she is, currently. Patient has been seen for the same symptoms twice in the past, last time was approximately 1 month ago, and there was some concerned about the patient possibly having a seizure disorder. Patient continues to have a tremulous effort of the left arm, which she cannot control. Patient has not been diagnosed with seizure disorder, but does report that these episodes of confusion do occur after she has not slept and has gone to work. Patient denies any known aggravating or alleviating factors. Patient is not on a seizure medication. Patient reports compliance with her medications. - Related Data Home Medications Medication Instructions Recorded Confirmed Last Taken Omeprazole Magnesium [PriLOSEC Otc] 20 mg PO QDAY 05/17/14 11/23/21 05/23/14 Quetiapine Fumarate (Nf) [SEROquel 150 mg PO QDAY 05/17/14 11/23/21 05/23/14 XR] Sertraline [Zoloft] 100 mg PO QDAY 05/17/14 11/23/21 05/23/14 Dexlansoprazole [Dexilant] 60 mg PO QDAY 05/24/14 11/23/21 05/23/14 LORazepam 1 mg PO BID 05/24/14 11/23/21 05/23/14 Previous Rx's Medication Instructions Recorded Last Taken Type Apixaban [Eliquis] 5 mg PO Q12HR #60 tablet 11/25/21 Unknown Rx Metoprolol [Lopressor TAB] 25 mg PO BID #60 tablet 11/25/21 Unknown Rx Allergies Allergy/AdvReac Type Severity Reaction Status Date / Time codeine AdvReac Itching Verified 06/10/22 07:52 ED Review of Systems ROS: Stated complaint: WEAKNESS Other details as noted in HPI Comment: All other systems reviewed and negative (History is limited due to patient's confusion, which is improving. Collateral information is gathered by her daughter.) Constitutional: weakness. denies: chills, fever Eyes: denies: eye pain, eye discharge, vision change ENT: other (Tongue pain). denies: ear pain, throat pain Respiratory: no symptoms reported. denies: cough, shortness of breath, wheezing Cardiovascular: denies: chest pain, palpitations Endocrine: no symptoms reported Gastrointestinal: denies: abdominal pain, nausea, diarrhea Genitourinary: denies: urgency, dysuria, discharge Musculoskeletal: denies: back pain, joint swelling, arthralgia Skin: denies: rash, lesions Neurological: other (Questionable seizure, left arm tremors). denies: headache, weakness, paresthesias Psychiatric: other (Sleep disturbances). denies: anxiety, depression, auditory hallucinations, visual hallucinations, homicidal thoughts, suicidal thoughts Hematological/Lymphatic: denies: easy bleeding, easy bruising ED Past Medical Hx - Past Medical History Previous Medical History?: Yes Hx Hypertension: Yes Hx GERD: Yes (1998) Hx Renal Disease: Yes Hx Seizures: Yes (X1 OCCURANCE R/T ECTOPIC 1979) Hx Psychiatric Treatment: Yes (Bipolar disorder) Hx HIV: No - Surgical History Past Surgical History?: Yes Additional Surgical History: Bilateral knee surgery - Social History Smoking Status: Never Smoker Substance Use Type: None - Medications Home Medications: Home Medications Medication Instructions Recorded Confirmed Last Taken Type Omeprazole Magnesium [PriLOSEC Otc] 20 mg PO QDAY 05/17/14 11/23/21 05/23/14 History Quetiapine Fumarate (Nf) [SEROquel 150 mg PO QDAY 05/17/14 11/23/21 05/23/14 History XR] Sertraline [Zoloft] 100 mg PO QDAY 05/17/14 11/23/21 05/23/14 History Dexlansoprazole [Dexilant] 60 mg PO QDAY 05/24/14 11/23/21 05/23/14 History LORazepam 1 mg PO BID 05/24/14 11/23/21 05/23/14 History Apixaban [Eliquis] 5 mg PO Q12HR #60 tablet 11/25/21 Unknown Rx Metoprolol [Lopressor TAB] 25 mg PO BID #60 tablet 11/25/21 Unknown Rx ED Physical Exam - General Limitations: No Limitations General appearance: alert, in no apparent distress - Head Head exam: Present: atraumatic, normocephalic - Eye Eye exam: Present: normal appearance, PERRL, EOMI - ENT ENT exam: Present: mucous membranes moist - Neck Neck exam: Present: normal inspection - Respiratory Respiratory exam: Present: normal lung sounds bilaterally. Absent: respiratory distress - Cardiovascular Cardiovascular Exam: Present: normal rhythm, tachycardia. Absent: systolic murmur, diastolic murmur, rubs, gallop - GI/Abdominal GI/Abdominal exam: Present: soft, normal bowel sounds - Extremities Exam Extremities exam: Present: normal inspection - Back Exam Back exam: Present: normal inspection - Neurological Exam Neurological exam: Present: alert, oriented X3, other (Left arm is tremulous) - Psychiatric Psychiatric exam: Present: normal affect, normal mood - Skin Skin exam: Present: warm, dry, intact, normal color. Absent: rash ED Course Vital Signs 01/26/22 01/27/22 01/27/22 23:53 01:01 01:16 Temperature 98 F Pulse Rate 98 H 91 H Respiratory 18 14 13 Rate Blood Pressure 156/79 142/64 O2 Sat by Pulse 96 93 Oximetry 01/27/22 01/27/22 01/27/22 01:30 02:29 02:30 Temperature Pulse Rate 97 H 120 H Respiratory 16 18 Rate Blood Pressure 122/85 142/64 142/64 O2 Sat by Pulse 90 94 94 Oximetry 01/27/22 01/27/22 01/27/22 02:46 03:00 03:16 Temperature Pulse Rate 101 H 101 H 100 H Respiratory 12 12 12 Rate Blood Pressure 115/70 142/64 O2 Sat by Pulse 93 95 95 Oximetry 01/27/22 01/27/22 01/27/22 03:46 04:00 04:16 Temperature Pulse Rate 95 H 99 H Respiratory 23 15 14 Rate Blood Pressure 115/70 115/70 115/70 O2 Sat by Pulse 93 96 Oximetry - Lab Data Result diagrams: 01/27/22 02:23 01/27/22 02:23 Lab Results 01/27/22 01/27/22 01/27/22 Range/Units 02:22 02:22 02:22 WBC (4.5-11.0) K/mm3 RBC (3.65-5.03) M/mm3 Hgb (10.1-14.3) gm/dl Hct (30.3-42.9) % MCV (79-97) fl MCH (28-32) pg MCHC (30-34) % RDW (13.2-15.2) % Plt Count (140-440) K/mm3 Lymph % (Auto) [place] % (Auto) Eos % (Auto) Baso % (Auto) Lymph # (Auto) [place] # (Auto) Eos # (Auto) Baso # (Auto) Seg Neutrophils % Seg Neutrophils # PT (12.2-14.9) Sec. INR (0.87-1.13) APTT (24.2-36.6) Sec. Sodium (137-145) mmol/L Potassium (3.6-5.0) mmol/L Chloride (98-107) mmol/L Carbon Dioxide (22-30) mmol/L Anion Gap mmol/L BUN (7-17) mg/dL Creatinine (0.6-1.2) mg/dL Estimated GFR ml/min BUN/Creatinine Ratio % Glucose (65-100) mg/dL Calcium (8.4-10.2) mg/dL Total Bilirubin (0.1-1.2) mg/dL AST (5-40) units/L ALT (7-56) units/L Alkaline Phosphatase (35-129) units/L Total Creatine Kinase (30-135) units/L Troponin T (0.00-0.029) ng/mL Total Protein (6.3-8.2) g/dL Albumin (3.9-5) g/dL Albumin/Globulin Ratio % Urine Color (Yellow) Urine Turbidity (Clear) Urine pH (5.0-7.0) Ur Specific Jerome (1.003-1.030) Urine Protein (Negative) mg/dL Urine Glucose (UA) (Negative) mg/dL Urine Ketones (Negative) mg/dL Urine Blood (Negative) Urine Nitrite (Negative) Ur Reducing Substances Urine Bilirubin (Negative) Urine Ictotest Urine Urobilinogen (<2.0) mg/dL Ur Leukocyte Esterase (Negative) Urine WBC (Auto) (0.0-6.0) /HPF Urine RBC (Auto) (0.0-6.0) /HPF U Epithel Cells (Auto) (0-13.0) /HPF Urine Bacteria (Auto) (Negative) /HPF Salicylates < 0.3 L (2.8-20.0) mg/dL Urine Opiates Screen Urine Methadone Screen Acetaminophen 5.0 L (10.0-30.0) ug/mL Ur Barbiturates Screen Ur Phencyclidine Scrn Ur Amphetamines Screen U Benzodiazepines Scrn Urine Cocaine Screen U Marijuana (THC) Screen Drugs of Abuse Note Plasma/Serum Alcohol < 0.01 (0-0.07) % 01/27/22 01/27/22 01/27/22 Range/Units 02:23 02:23 02:23 WBC 10.3 (4.5-11.0) K/mm3 RBC 4.62 (3.65-5.03) M/mm3 Hgb 14.3 (10.1-14.3) gm/dl Hct 42.9 (30.3-42.9) % MCV 93 (79-97) fl MCH 31 (28-32) pg MCHC 33 (30-34) % RDW 14.1 (13.2-15.2) % Plt Count 202 (140-440) K/mm3 Lymph % (Auto) Pilot Manager [place] % (Auto) Pilot Manager Eos % (Auto) Pilot Manager Baso % (Auto) Pilot Manager Lymph # (Auto) Pilot Manager [place] # (Auto) Pilot Manager Eos # (Auto) Pilot Manager Baso # (Auto) Pilot Manager Seg Neutrophils % Pilot Manager Seg Neutrophils # Pilot Manager PT 16.0 H (12.2-14.9) Sec. INR 1.15 H (0.87-1.13) APTT 35.1 (24.2-36.6) Sec. Sodium 136 L (137-145) mmol/L Potassium 4.2 (3.6-5.0) mmol/L Chloride 96.4 L (98-107) mmol/L Carbon Dioxide 23 (22-30) mmol/L Anion Gap 21 mmol/L BUN 31 H (7-17) mg/dL Creatinine 1.5 H (0.6-1.2) mg/dL Estimated GFR 34 ml/min BUN/Creatinine Ratio 21 % Glucose 144 H (65-100) mg/dL Calcium 10.5 H (8.4-10.2) mg/dL Total Bilirubin 0.70 (0.1-1.2) mg/dL AST 18 (5-40) units/L ALT 13 (7-56) units/L Alkaline Phosphatase 97 (35-129) units/L Total Creatine Kinase 108 (30-135) units/L Troponin T < 0.010 (0.00-0.029) ng/mL Total Protein 7.3 (6.3-8.2) g/dL Albumin 4.4 (3.9-5) g/dL Albumin/Globulin Ratio 1.5 % Urine Color (Yellow) Urine Turbidity (Clear) Urine pH (5.0-7.0) Ur Specific Jerome (1.003-1.030) Urine Protein (Negative) mg/dL Urine Glucose (UA) (Negative) mg/dL Urine Ketones (Negative) mg/dL Urine Blood (Negative) Urine Nitrite (Negative) Ur Reducing Substances Urine Bilirubin (Negative) Urine Ictotest Urine Urobilinogen (<2.0) mg/dL Ur Leukocyte Esterase (Negative) Urine WBC (Auto) (0.0-6.0) /HPF Urine RBC (Auto) (0.0-6.0) /HPF U Epithel Cells (Auto) (0-13.0) /HPF Urine Bacteria (Auto) (Negative) /HPF Salicylates (2.8-20.0) mg/dL Urine Opiates Screen Urine Methadone Screen Acetaminophen (10.0-30.0) ug/mL Ur Barbiturates Screen Ur Phencyclidine Scrn Ur Amphetamines Screen U Benzodiazepines Scrn Urine Cocaine Screen U Marijuana (THC) Screen Drugs of Abuse Note Plasma/Serum Alcohol (0-0.07) % 01/27/22 01/27/22 Range/Units 02:43 02:43 WBC (4.5-11.0) K/mm3 RBC (3.65-5.03) M/mm3 Hgb (10.1-14.3) gm/dl Hct (30.3-42.9) % MCV (79-97) fl MCH (28-32) pg MCHC (30-34) % RDW (13.2-15.2) % Plt Count (140-440) K/mm3 Lymph % (Auto) [place] % (Auto) Eos % (Auto) Baso % (Auto) Lymph # (Auto) [place] # (Auto) Eos # (Auto) Baso # (Auto) Seg Neutrophils % Seg Neutrophils # PT (12.2-14.9) Sec. INR (0.87-1.13) APTT (24.2-36.6) Sec. Sodium (137-145) mmol/L Potassium (3.6-5.0) mmol/L Chloride (98-107) mmol/L Carbon Dioxide (22-30) mmol/L Anion Gap mmol/L BUN (7-17) mg/dL Creatinine (0.6-1.2) mg/dL Estimated GFR ml/min BUN/Creatinine Ratio % Glucose (65-100) mg/dL Calcium (8.4-10.2) mg/dL Total Bilirubin (0.1-1.2) mg/dL AST (5-40) units/L ALT (7-56) units/L Alkaline Phosphatase (35-129) units/L Total Creatine Kinase (30-135) units/L Troponin T (0.00-0.029) ng/mL Total Protein (6.3-8.2) g/dL Albumin (3.9-5) g/dL Albumin/Globulin Ratio % Urine Color Yellow (Yellow) Urine Turbidity Slightly cloudy (Clear) Urine pH 5.0 (5.0-7.0) Ur Specific Jerome 1.025 (1.003-1.030) Urine Protein <15 mg/dl (Negative) mg/dL Urine Glucose (UA) Negative (Negative) mg/dL Urine Ketones Negative (Negative) mg/dL Urine Blood Negative (Negative) Urine Nitrite Negative (Negative) Ur Reducing Substances Not Reportable Urine Bilirubin Negative (Negative) Urine Ictotest Not Reportable Urine Urobilinogen < 2.0 (<2.0) mg/dL Ur Leukocyte Esterase Negative (Negative) Urine WBC (Auto) 1.0 (0.0-6.0) /HPF Urine RBC (Auto) 1.0 (0.0-6.0) /HPF U Epithel Cells (Auto) < 1.0 (0-13.0) /HPF Urine Bacteria (Auto) 1+ (Negative) /HPF Salicylates (2.8-20.0) mg/dL Urine Opiates Screen Presumptive negative Urine Methadone Screen Presumptive negative Acetaminophen (10.0-30.0) ug/mL Ur Barbiturates Screen Presumptive negative Ur Phencyclidine Scrn Presumptive negative Ur Amphetamines Screen Presumptive positive U Benzodiazepines Scrn Presumptive negative Urine Cocaine Screen Presumptive negative U Marijuana (THC) Screen Presumptive negative Drugs of Abuse Note Disclamer Plasma/Serum Alcohol (0-0.07) % - Differential Diagnosis Seizure, intoxication, acute psychiatric episode, dementia Critical care attestation.: If time is entered above; I have spent that time in minutes in the direct care of this critically ill patient, excluding procedure time. ED Disposition Clinical Impression: Confusion and disorientation Disposition: 01 HOME / SELF CARE / HOMELESS Is pt being admited?: No Condition: Stable Instructions: Confusion Additional Instructions: Please follow-up with a Neurologist, soon. Referrals: PRIMARY CAREMD [Referring] - 3-5 Days RAFI RICO MD [Referring] - 3-5 Days Time of Disposition: 05:18
[2022-01-27 02:48] LABS: Hematocrit 42.9 % (30.3-42.9); Hemoglobin 14.3 gm/dl (10.1-14.3); Mean Corpuscular HGB Conc 33 % (30-34); Mean Corpuscular Volume 93 fl (79-97); Platelet Count 202 K/mm3 (140-440); Red Blood Count 4.62 M/mm3 (3.65-5.03); Red Cell Distribution Width 14.1 % (13.2-15.2)
[2022-01-27 02:55] LABS: Bacteria,Urine 1+ /HPF (Negative)
[2022-01-27 02:56] LABS: Alanine Aminotransferase 13 units/L (7-56); Albumin 4.4 g/dL (3.9-5); BUN/Creatinine Ratio 21; Blood Urea Nitrogen 31 mg/dL (7-17)
[2022-01-27 02:58] LABS: Color,Urine Yellow (Yellow)
[2022-01-27 02:59] LABS: INR 1.15 (0.87-1.13)
[2022-01-27 02:59] LABS: Bilirubin,Urine Negative (Negative); Blood,Urine Negative (Negative); Protein,Urine <15 mg/dL mg/dL (Negative); Urobilinogen,Urine < 2.0 mg/dL (<2.0)
[2022-01-27 03:00] LABS: Amphetamine Screen,Urine PRESUMPTIVE POSITIVE; Benzodiazepines Screen,Urine PRESUMPTIVE NEGATIVE; Cannabinoid Screen,Urine PRESUMPTIVE NEGATIVE; Cocaine Screen,Urine PRESUMPTIVE NEGATIVE; Methadone Screen,Urine PRESUMPTIVE NEGATIVE; Opiate Screen,Urine PRESUMPTIVE NEGATIVE
[2022-01-27 03:00] LABS: Partial Thromboplastin Time 35.1 Sec. (24.2-36.6)
[2022-01-27 03:10] LABS: Calcium 10.5 mg/dL (8.4-10.2)
--- NOTE | 2022-01-27 04:37 | Cat Scan Report ---
. CT HEAD WITHOUT CONTRAST INDICATION / CLINICAL INFORMATION: Altered Mental Status. TECHNIQUE: All CT scans at this location are performed using CT dose reduction for ALARA by means of automated e xposure control. COMPARISON: 11/22/2021 FINDINGS: No acute intracranial hemorrhage. Ventricles are normal in size without midline shift or mass effect. No extra-axial fluid collection is seen. Visualized portions of the sella appear normal. No large te rritorial infarct is definitely seen. Visualized sinuses are clear. ADDITIONAL FINDINGS: None. IMPRESSION: 1. No significant interval change since prior examination. No acute hemorrhage. Signer Name: Sushant Gutierrez MD Signed: 01/27/2022 4:32 AM Workstation Name: [id number]
[2022-01-27] MEDS ORDERED: LACOSAMIDE 200 MG in SODIUM CHLORIDE 0.9% 100 ML IV SCH (05:00)
--- NOTE | 2022-01-27 05:09 | Emergency Department Report ---
Blank Doc - Documentation Documentation: [facility] Consult Note # Demographics Consult Type: General Neurology Patient Location: Emergency Room First Name: Justine Last Name: Neil Date of : 1950 Age: 71 Gender: Female Facility: [facility] Time of Initial Page ( Time): 01/27/2022, 04:45 Time of Return Call ( Time): 01/27/2022, 04:49 # HPI History: 71 yo woman hx of bipolar disorder, possible history of seizure, found today confused, possibly has not slept in days. Today as found confused. Family member thought there may have been a seizures. Patient Notes she is having hand trembling and shaking, which is present at this time. No loss of consciousness. Patient is on seroquel, zoloft, eliquis. # Scores Time of exam and NIHSS ( Time): 01/27/2022, 05:07 Level of Consciousness 1a: [0] = Alert; keenly responsive LOC Questions 1b: [0] = Answers both questions correctly LOC Commands 1c: [0] = Performs both tasks correctly Best Gaze 2: [0] = Normal Visual 3: [0] = No visual loss Facial Palsy 4: [0] = Normal symmetrical movements Motor Arm Left 5a: [0] = No drift Motor Arm Right 5b: [0] = No drift Motor Leg Left 6a: [0] = No drift Motor Leg Right 6b: [0] = No drift Limb Ataxia 7: [0] = Absent Sensory 8: [0] = Normal Best Language 9: [0] = No aphasia Dysarthria 10: [0] = Normal Extinction and Inattention 11: [0] = No abnormality NIHSS Total: 0 # Data Head CT: no bleed # Assessment Impression: bilateral upper ext tremor, possible myoclonic jerking in setting of bipolar disorder, possible long period of sleep deprivation. Seizure in this setting would be very unlikely. These symptoms are usually seen in metabolic derangements, toxic encephalopathies, etc. # Plan Additional Recommendations: recs: metabolic/infectious work up mri brain w/wo contrast eeg routine. consider psycho consults for management of bipolar disorder/manic state management no need for anti epileptic unless patient has witnessed seizure. can consider imaging and eeg as outpatient from neurology standpoint. . # Logistics Telemedicine: Interactive 2 way audio and visual telecommunication technology was utilized during this visit # Demographics First Name: Justine Last Name: Neil Facility: [facility]
[2022-01-27 05:45] VITALS: BP 138/60
--- NOTE | 2022-01-27 16:09 | Electrocardiograph Report ---
[facility] Test Date: 2022-01-27 Test Time: 02:52:50 Pat Name: NIKKI AHUMADA Department: Room: Gender: F Travel Accommodation Inspector: KACIE : 1950 Requested By: NEREYDA CHASE Order Number: [id number] Reading MD: Kim Kelly Measurements Intervals [place]ascade Rate: 103 P: AL: QRS: -46 QRSD: 104 T: 128 QT: 362 QTc: 474 Interpretive Statements Atrial fibrillation Left anterior fascicular block Low voltage, precordial leads poor r wave prgression Compared to ECG 11/22/2021 11:51:24 Left anterior fascicular block now present Low QRS voltage now present Electronically Signed On 01-27-2022 16:09:02 EDT by Kim Kelly
== END 2022-01-27 05:46 | disposition home or self-care (01) ==
LOC: ED 23:51
DX: R41.0 Disorientation, unspecified (principal); I10 Essential (primary) hypertension; Z88.5 Allergy status to narcotic agent; F31.9 Bipolar disorder, unspecified
CPT/HCPCS: 36415; 70450; 80053; 80307; 81001; 82550; 84484; 85025; 85610; 85730; 93005; 96360; 96361; 99284; J7030; 80320; 96375; G0480